=== PATIENT | female | born 1995 | race American Indian/Alaskan Native ===

== ENCOUNTER 2018-03-16 14:53 | Emergency (ER) | payer OTHER ==
[2018-03-16 15:02] VITALS: RESP 20; O2SAT 99
[2018-03-16 16:47] LABS: SQUAMOUS EPITHIAL 3 /hpf (0-5); URINE BACTERIA OCC (<OCC); URINE BILIRUBIN NEGATIVE (NEGATIVE); URINE BLOOD 2+ (NEGATIVE); URINE CLARITY Clear (Clear); URINE COLOR Yellow (YELLOW); URINE GLUCOSE (UA) NORMAL (Normal); URINE LEUKOCYTE ESTERASE NEG Leu/uL (Negative); URINE PROTEIN NEGATIVE (NEGATIVE); URINE UROBILINOGEN NORMAL mg/dL (0.2-1.0)
--- NOTE | 2018-03-16 17:01 | C.PDOC ---
History Of Present Illness 22yo female, LNMP 2 weeks ago, presents to ED with complaints of vaginal bleeding since earlier today. Patient states the bleeding is not consistent with her period, causing her concern and prompting the ER visit. She denies any back pain, abdominal pain, fever, chills, vaginal discharge. She also denies any STD exposure. Patient has no other medical complaints. PMD: Bud Lara Time Seen by Provider: 03/16/18 15:13 Chief Complaint (Nursing): Female Genitourinary History Per: Patient History/Exam Limitations: no limitations Onset/Duration Of Symptoms: Hrs Current Symptoms Are (Timing): Still Present Additional History Per: Patient Past Medical History Reviewed: Historical Data, Nursing Documentation, Vital Signs Vital Signs: Last Vital Signs Temp 98 F 03/16/18 17:10 Pulse 70 03/16/18 17:10 Resp 20 03/16/18 17:10 BP 120/70 03/16/18 17:10 Pulse Ox 99 03/16/18 17:10 - Medical History PMH: No Chronic Diseases, Gastritis Surgical History: Tonsillectomy Family History: States: No Known Family Hx - Social History Hx Alcohol Use: No Hx Substance Use: No - Immunization History Hx Tetanus Toxoid Vaccination: No Hx Influenza Vaccination: No Hx Pneumococcal Vaccination: No Review Of Systems Except As Marked, All Systems Reviewed And Found Negative. Constitutional: Negative for: Fever, Chills Gastrointestinal: Negative for: Abdominal Pain Genitourinary: Positive for: Vaginal Bleeding. Negative for: Vaginal Discharge , Pelvic Pain Musculoskeletal: Negative for: Back Pain Physical Exam - Physical Exam Appears: Non-toxic, No Acute Distress Skin: Normal Color, Warm, Dry Head: Atraumatic, Normacephalic Eye(s): bilateral: Normal Inspection, PERRL Neck: Normal ROM, Supple Chest: Symmetrical Cardiovascular: Rhythm Regular Respiratory: Normal Breath Sounds Gastrointestinal/Abdominal: Normal Exam, Soft, No Tenderness Neurological/Psych: Oriented x3 ED Course And Treatment - Laboratory Results Urine POC: Negative O2 Sat by Pulse Oximetry: 99 (RA) Pulse Ox Interpretation: Normal Medical Decision Making Medical Decision Making: Impression: Vaginal bleeding Plan: -- Upreg -- Urinalysis POC Upreg is negative. Urinalysis reviewed and shows no clinically significant abnormalities. Patient is stable for discharge home and instructed to follow up with PMD in 2-3 days. Disposition - Disposition Disposition: HOME/ ROUTINE Disposition Time: 16:59 Condition: STABLE Additional Instructions: Follow up with your behavioral therapist. Forms: [facility] (Danish), General Discharge Instructions - POA Present On Arrival: None - Clinical Impression Clinical Impression: Vaginal bleeding - Scribe Statement The provider has reviewed the documentation as recorded by the Scribe (Cayla Riley) Provider Attestation: All medical record entries made by the Scribe were at my direction and personally dictated by me. I have reviewed the chart and agree that the record accurately reflects my personal performance of the history, physical exam, medical decision making, and the department course for this patient. I have also personally directed, reviewed, and agree with the discharge instructions and disposition.
[2018-03-16 17:11] VITALS: BP 120/70; PULSE 70; TEMP 98
== END 2018-03-16 17:10 | disposition home or self-care (01) ==
LOC: C.ER 14:53
DX: N93.9 Abnormal uterine and vaginal bleeding, unspecified (principal)